=== PATIENT | male | born 1940 | race Caucasian/White ===

== ENCOUNTER 2020-11-02 00:01 | Observation (INO) | payer MEDICARE, BC ==
[~2020-11-02] VITALS: Ht 177.8 cm; Wt 86.0 kg
[~2020-11-02 00:01] MED LIST: OMEPRAZOLE20 MG PO
[2020-11-02] MEDS ORDERED: PREDNISONE20 MG PO (09:53)
--- NOTE | 2020-11-03 19:53 | EKG ---
[facility] [address] [place], [place] [address] Signed Sinus tachycardia with frequent premature ventricular complexes Rightward axis ST \T\ T wave abnormality, consider inferior ischemia ST \T\ T wave abnormality, consider anterolateral ischemia Abnormal ECG No previous ECGs available Confirmed by SILVIA OLSON DO ([id number]) on 11/03/2020 7:53:09 PM Electronically Signed By: SILVIA OLSON DO 11/03/201952 PATIENT NAME: DEMETRIO STROUD Electrocardiogram DATE OF : 38 PHYSICIAN: SILVIA OLSON DO REPORT #: [id number] REPORT IS CONFIDENTIAL AND NOT TO BE RELEASED WITHOUT AUTHORIZATION
== END 2020-11-02 13:55 | disposition home or self-care (01) ==
LOC: ED 00:01 → MS 00:03
PROVIDERS: ADMIT Internal Medicine; ATTEND Internal Medicine
DX: J96.11 Chronic respiratory failure with hypoxia (principal); J84.112 Idiopathic pulmonary fibrosis; K21.9 Gastro-esophageal reflux disease without esophagitis; Z20.822 Contact with and (suspected) exposure to COVID-19; Z99.81 Dependence on supplemental oxygen
CPT/HCPCS: 71045; 71260; 80053; 83605; 84484; 85025; 85379; 87040; 93005; 93010; 94640; 94761; 99285-25; C9803; G0378; J7512; Q9967; U0003